=== PATIENT | female | born 1960 | race Caucasian/White ===

== ENCOUNTER → 2020-03-10 | Day surgery (SDC) | payer BC ==
[~2020-03-10] MED LIST: Ketamine 200 MG/20 ML MDV IV ONE; Lactated Ringers 1,000 ML IV SCH; Propofol 200 MG/20 ML SDV IV ONE
--- NOTE | 2020-03-10 18:14 | OR ---
DATE OF OPERATION: 03/10/2020 PREOPERATIVE DIAGNOSIS: SCREENING COLONOSCOPY. POSTOPERATIVE DIAGNOSIS: SCREENING COLONOSCOPY. SURGEON: Chet Singletary MD PROCEDURE: FULL-LENGTH COLONOSCOPY. ANESTHESIA: MAC. COMPLICATIONS: None. SPECIMEN: None. FINDINGS: 1. Full-length colonoscopy. 2. Mild sigmoid diverticulosis. RECOMMENDATIONS: Followup colonoscopy in 10 years. INDICATIONS: The patient was in to see Ashlie Booth for routine physical. It has been over 10 years since her last colonoscopy. Ashlie sent her for a screening procedure. DESCRIPTION OF PROCEDURE: The patient was prepped and draped, placed in the left lateral decubitus position. A lubricated Olympus colonoscope was inserted and easily advanced to the cecum. Direct visualization of the ileocecal valve and appendiceal orifice was accomplished. The bowel prep was adequate. Upon withdrawal of the scope throughout the entire right transverse and descending colon, no abnormalities were seen. The patient had scattered diverticula throughout the sigmoid and rectosigmoid region, mild in severity. No inflammatory changes. I could find no other polyps, masses, ulceration, or bleeding sites. No vascular abnormalities or signs of colitis. The rectal vault appeared benign. Retroflexion of the scope in the rectum showed no anal lesions. Air was suctioned, the scope removed without complication. MENDEL/DAYDAY /[id number]
== END ==
LOC: CC.SDS 10:18
PROVIDERS: ATTEND Family Medicine
DX: Z12.11 Encounter for screening for malignant neoplasm of colon (principal); K57.30 Diverticulosis of large intestine without perforation or abscess without bleeding; Z78.0 Asymptomatic menopausal state
CPT/HCPCS: G0121; J2704; J7120